=== PATIENT | female | born 1995 | race African-American/Black ===

== ENCOUNTER 2016-12-05 22:00 | Outpatient (CLI) | payer MEDICAID ==
[~2016-12-05] VITALS: Ht 167.6 cm; Wt 72.7 kg
[2016-12-05] MEDS ORDERED: PRENATAL MVI (22:50)
[2016-12-05 23:15] VITALS: BP 122/67; PULSE 87; TEMP 98.3
== END 2016-12-05 23:25 | disposition home or self-care (01) ==
LOC: LDRO 22:00
DX: O99.612 Diseases of the digestive system complicating pregnancy, second trimester (principal); R10.9 Unspecified abdominal pain; Z3A.27 27 weeks gestation of pregnancy

== ENCOUNTER 2019-01-03 07:51 | Inpatient (IN) | payer MEDICAID ==
[~2019-01-03] VITALS: Ht 167.6 cm; Wt 88.2 kg
[2019-01-03] VITALS (30 sets, daily range): BP systolic 102–140; BP diastolic 60–85; PULSE 67–90; TEMP 97.1–98.3
[~2019-01-03 07:51] MED LIST: PRENATAL MVI
--- NOTE | 2019-01-03 08:00 | NUR ---
Patient ambulatory to unit accompanied by father of baby. Patient oriented to room and call light. patient in bathroom and explained need for UA at this time due to hx of marijuana use. Patient verbalizes understanding and UA collected via clean catch and sent to lab. Gown on and patient resting in bed. FHR and contraction monitors placed and explained. Patient states baby has been active, denies any leaking of fluid or vaginal bleeding. Consents signed. Assessment completed. IV started in left hand using 20 G at 0832. LR infusing without difficulty. Pen G started per GBS protocol. SVE 460/-2. Pitocin started at 0838. Patient resting in bed, call light in reach.
[2019-01-03 09:04] LABS: BASO % 0.4 % (0.0-2.0); EOS # 0.1 (0.0-0.7); EOS % 0.6 % (0-4.0); GRAN # 5.2 (1.4-6.5); GRAN % 62.8 % (42.2-75.2); HEMATOCRIT 39.1 % (37.0-47.0); HEMOGLOBIN 11.9 g/dl (12.5-16.0); LYMPH % 23.8 % (20.0-51.0); MEAN CORPUSCULAR HEMOGLOBIN 21 pg (27.0-31.0); MEAN CORPUSCULAR HGB CONC 30 g/dl (33.0-37.0); MONO % 11.7 % (1.7-9.3); PLATELET COUNT 127 K/mm3 (130-400); RED BLOOD COUNT 5.59 M/mm3 (4.10-5.30); REDCELL DISTRIBUTION WIDTH-CV 18.6 % (11.5-14.5)
--- NOTE | 2019-01-03 09:15 | NUR ---
0900: Dr. Ballard at nurses station and reviews FHR since admission. 0915: At bedside. Bedside ultrasound and vertex position verified. Plan of care reviewed with patient. Patient verbalizes understanding.
[2019-01-03 09:18] LABS: TRICYCLIC ANTIDEPRESS URINE NEGATIVE
[2019-01-03 09:40] LABS: MEAN CELL VOLUME 70 fl (80.0-100.0)
--- NOTE | 2019-01-03 10:12 | NUR ---
1012: Dr. Ballard at nurses station and reviews FHR strip. In room, SVE 5/80/-2 with AROM and moderate amount of clear fluid noted. Patient breathing heavily through contractions and requesting an epidural at this time. Socrates Batres CRNA called and notified of patient request for epidural.
--- NOTE | 2019-01-03 10:30 | NUR ---
1030: Patient sitting up at side of bed for epidural placement. Socrates Batres CRNA in room and epidural explained. 1034: Epidural single shot at 1034. No reaction to single shot. 1040: Patient repositioned and sitting up in bed per Socrates Batres CRNA order. See anesthesia records. 1042: Patient feeling more vaginal pressure, SVE 6/80/-2.
--- NOTE | 2019-01-03 11:21 | NUR ---
Patient feeling increased vaginal pressure. SVE /-1. Zimmer catheter placed using sterile technique. Patient tolerates well.
--- NOTE | 2019-01-03 11:42 | NUR ---
SVE /+1. Dr. Ballard called for delivery.
--- NOTE | 2019-01-03 12:02 | NUR ---
1155: Zimmer catheter removed and patient prepped for delivery. 1202: Spontaneous vaginal delivery of infant head immediately followed by body. to mother's abdomen where attended to by Stiven Pierce RN. Pitocin off. Umbilical cord cut by father of baby assisted by Dr. Ballard. 1206: Spontaneous and intact delivery of placenta. Pitocin restarted at 333ml/hr. Fundus massaged, firm and down 1 from umbilicus. Perineum intact. Pericare provided and ice pack to perineum. Patient sitting up in bed holding infant. See labor and delivery summary, doctor dictation, anesthesia records.
--- NOTE | 2019-01-03 20:00 | NUR ---
IV POSITIONAL AND UNCOMFORTABLE - DISCONTINUED PER PT REQUEST AFTERE EXPLAINING IV RHOGAM
[2019-01-04 00:45] VITALS: BP 155/77; PULSE 71; TEMP 98.3
[2019-01-04 07:50] LABS: HEMATOCRIT 34.5 % (37.0-47.0); HEMOGLOBIN 10.4 g/dl (12.5-16.0)
[2019-01-04 08:10] VITALS: BP 121/81; PULSE 74; TEMP 97.6
[2019-01-04 11:00] VITALS: BP 127/73; PULSE 68; TEMP 98.1
[2019-01-04 15:35] VITALS: BP 123/88; PULSE 85; TEMP 98.1
--- NOTE | 2019-01-04 16:50 | NUR ---
SW consulted for Substance in parent. Parent tested + for THC. Baby did not. Patient reports that she last smoked cannabis 2-5 months ago. Patient denied using anything recently and planned to breast feed. Patient reports that she is in a relationship with her BF who is not the malachi father. Patient reports that she not currently working but has WIC and [employer] supports. Patient indicated that her BF will support her until she returns to work. Patient reports that she has another child at home a 1 year old boy who is currently with her father. Patient reports that there is an open DCF case with her older child but would not go into details. Patient denies any unsafe conditions that would prevent her from going home. [facility] staff with patient nurse. Nurse reports appropriateness with child and bonding without concerns. [id number]
[2019-01-04 20:00] VITALS: BP 126/71; PULSE 79; TEMP 98.2
[2019-01-05 08:25] VITALS: BP 125/72; PULSE 87; TEMP 97.8
[2019-01-05] MEDS ORDERED: PERCOCET 325 MG1 TA2 PO (08:45)
[2019-01-05] MEDS ORDERED: IBU600 MG PO (08:45)
== END 2019-01-05 11:55 | disposition home or self-care (01) | DRG 807 ==
LOC: LDR 07:51 → OB 16:21
PROVIDERS: ADMIT Obstetrics & Gynecology
PROC: 10E0XZZ Delivery of Products of Conception, External Approach (ICD-10-PCS; principal; 2019-01-03)
PROC: 3E033VJ Introduction of Other Hormone into Peripheral Vein, Percutaneous Approach (ICD-10-PCS; 2019-01-03)
PROC: 10907ZC Drainage of Amniotic Fluid, Therapeutic from Products of Conception, Via Natural or Artificial Opening (ICD-10-PCS; 2019-01-03)
DX: O99.824 Streptococcus B carrier state complicating childbirth (principal); Z37.0 Single live birth; O99.02 Anemia complicating childbirth; D64.9 Anemia, unspecified; O99.324 Drug use complicating childbirth; F12.90 Cannabis use, unspecified, uncomplicated; Z3A.40 40 weeks gestation of pregnancy
CPT/HCPCS: J2540; J2590; J2791; J2795; J7120